=== PATIENT | female | born 1995 | race Two or more races ===

== ENCOUNTER 2020-05-03 16:12 | Inpatient (IN) | payer OTHER ==
[~2020-05-03] VITALS: Ht 154.9 cm; Wt 78.5 kg
[2020-05-03] MEDS ORDERED: PRENATAL TABLE1 EAC1 PO (16:36)
[2020-05-03] MEDS ORDERED: IRON325 MG PO (16:36)
[2020-05-06] MEDS ORDERED: NIFEDIPINE ER30 M1 PO (11:59)
== END 2020-05-06 12:06 | disposition home or self-care (01) | DRG 833 ==
LOC: LDR 16:12 → OB/GYN 16:12
PROVIDERS: ADMIT Specialist; ATTEND Specialist
PROC: 4A0HXFZ Measurement of Products of Conception, Cardiac Rhythm, External Approach (ICD-10-PCS; principal; 2020-05-03)
PROC: BY4FZZZ Ultrasonography of Third Trimester, Single Fetus (ICD-10-PCS; 2020-05-03)
PROC: BY4FZZZ Ultrasonography of Third Trimester, Single Fetus (ICD-10-PCS; 2020-05-03)
PROC: BY4FZZZ Ultrasonography of Third Trimester, Single Fetus (ICD-10-PCS; 2020-05-06)
DX: O47.03 False labor before 37 completed weeks of gestation, third trimester (principal); O46.8X3 Other antepartum hemorrhage, third trimester; Z20.828 Contact with and (suspected) exposure to other viral communicable diseases

== ENCOUNTER 2020-05-28 11:52 | Inpatient (IN) | payer OTHER ==
[~2020-05-28] VITALS: Ht 154.9 cm; Wt 3.2 kg
[~2020-05-28 11:52] MED LIST: IRON325 MG PO; NIFEDIPINE ER30 M1 PO; PRENATAL TABLE1 EAC1 PO
[2020-06-12] MEDS ORDERED: VALACYCLOVIR500 MG PO (13:56)
[2020-06-19] MEDS ORDERED: PRENATAL TABLE1 EAC1 PO (00:59)
[2020-06-19] MEDS ORDERED: HIERRO (01:00)
[2020-06-22] MEDS ORDERED: IRON325 MG (10:29)
== END 2020-06-22 14:36 | disposition home or self-care (01) | DRG 785 ==
LOC: LDR 06-18 23:56 → O/R 06-18 23:56 → OB/GYN 06-18 23:56 → O/R 06-19 05:24 → OB/GYN 06-19 05:44
PROVIDERS: ADMIT Specialist; ATTEND Specialist
PROC: 0UT70ZZ Resection of Bilateral Fallopian Tubes, Open Approach (ICD-10-PCS; 2020-06-19)
PROC: 4A1HXFZ Monitoring of Products of Conception, Cardiac Rhythm, External Approach (ICD-10-PCS; 2020-06-19)
PROC: 3E033VJ Introduction of Other Hormone into Peripheral Vein, Percutaneous Approach (ICD-10-PCS; 2020-06-19)
PROC: 10D00Z1 Extraction of Products of Conception, Low, Open Approach (ICD-10-PCS; principal; 2020-06-19 07:00)
DX: O34.211 Maternal care for low transverse scar from previous cesarean delivery (principal); Z3A.39 39 weeks gestation of pregnancy; Z37.0 Single live birth; Z30.2 Encounter for sterilization; Z20.828 Contact with and (suspected) exposure to other viral communicable diseases